=== PATIENT | female | born 1975 | race African-American/Black ===

== ENCOUNTER 2016-06-10 01:45 | Inpatient (IN) | payer OTHER ==
[~2016-06-10] VITALS: Ht 157.5 cm; Wt 73.7 kg
--- NOTE | ~2016-06-10 | H ---
[facility] [place] [address] HISTORY AND PHYSICAL Name: LAINE STALEY HENRIQUE Room #: 433-I ADM IN M.R.#: [id number] Admission: 06/10/16 Attend Phys: Elier Key MD Discharge: Date of : 77 Report #: [id number] THIS REPORT FOR: //name// CC: JOSE physician/PCP Elier Key DATE OF SERVICE: 06/10/2016 CHIEF COMPLAINT: Left mandibular swelling. HISTORY OF PRESENT ILLNESS: The patient is a 40-year-old female with no significant past medical history who presented to the Emergency Room complaining of left-sided facial swelling. Symptoms started 4 days ago when she started having left-sided dental pain. She was seen at a dentist and was told that she had a wisdom tooth infection. She was started on amoxicillin , hydrocodone p.r.n. The patient presented to the Emergency Room because of worsening swelling and pain. She has had some low-grade fever. The patient has had difficulty swallowing because of the swelling. No history of any nausea or vomiting, no chest pain, no dizziness. Workup in the Emergency Room included a CT of the facial bones which showed moderate to large 3.5 cm abscess extending up the left posterior medial angle of the mandible adjacent to the mandibular erosion from the posterior molar. The erosion of the enamel of left lower posterior two molar suggesting severe cavities and dental disease. PAST MEDICAL HISTORY: No hypertension, no diabetes. No history of any surgery. She has had 3 normal vaginal deliveries in the past. No peptic ulcer disease, bleeding disorder. SOCIAL HISTORY: No smoking or alcohol abuse or illicit drug abuse. HOME MEDICATIONS: No chronic medications. She was on amoxicillin, hydrocodone prior to admission. FAMILY HISTORY: Father had diabetes. REVIEW OF SYSTEMS: CONSTITUTIONAL: No recent weight loss, weight gain. Has had some low grade fever. EYES: No change in vision. THROAT: Denies any sore throat. CARDIOVASCULAR: No chest pain, dizziness, palpitations. RESPIRATORY: No cough, expectoration. GASTROINTESTINAL: No nausea or vomiting. GENITOURINARY: No dysuria, hematuria. NEUROLOGIC: No focal numbness and weakness of the extremities. [facility] [address] [place] [address] HISTORY AND PHYSICAL Name: LAINE STALEY HENRIQUE Room #: [address] [place] [address] [place] [facility]#: [id number] Admission: 06/10/16 Attend Phys: Elier Key MD Discharge: Date of : 77 Report #: [id number] PSYCHIATRIC: No anxiety and depression. A 12-point review of system is negative other than the positive and negative dictated in the history of present illness and the review of system. PHYSICAL EXAMINATION: VITAL SIGNS: Blood pressure 90/50, heart rate of 66 per minute, afebrile. GENERAL: The patient is awake and alert, not in acute respiratory distress. EYES: Pupils equal, reactive to light. Extraocular movements intact. THROAT: She has dental caries in the left lower tooth. There is diffuse swelling involving the mandible with tenderness. NECK: There is diffuse swelling over the upper left neck. No bruit noted. No lymphadenopathy. No stridor. CARDIOVASCULAR SYSTEM: S1, S2, negative S3, no murmur. CHEST: Bilateral air entry present. Clear on auscultation. ABDOMEN: Soft, bowel sounds present, no mass, no organomegaly, no tenderness. PERIPHERY: No pedal edema. No calf tenderness. Dorsalis pedis 1+. NEUROLOGICAL: No gross motor or sensory deficit. LABORATORY DATA: Reviewed. White cell count is 13.4, hemoglobin is 12.1, potassium 3.3. BUN and creatinine are within normal limit. negative. CT of the facial bones showed a 3.5 cm, moderate to large abscess extending of the left posterior medial angle of the mandible descended to mandibular erosion from the posterior molar erosion with the enamel of the left lower posterior two molar suggesting severe cavity and dental disease. ASSESSMENT AND PLAN: 1. Abscess, extending of the left posterior medial angle of the mandible adjacent to the mandibular erosion from posterior molar. 2. Dental caries and cavities. 3. Hypokalemia. PLAN: The patient will be continued on IV clindamycin, will also add IV levofloxacin. We will consult oral surgery. The patient will be continued on pain control. She will be placed on a soft diet and IV fluids. We will place her on SCD on the leg for DVT prophylaxis. Potassium will also be replaced. Treatment plan has been explained to the patient in detail. <ELECTRONICALLY SIGNED> By: Elier Key MD 06/10/16 [id number] Elier Key MD /nt
[~2016-06-10 01:45] MED LIST: AMOXICILLIN875 MG PO
[2016-06-10 01:49] VITALS: BP 131/78
[2016-06-10 02:44] LABS: ABSOLUTE NEUTROPHILS 10.6 thou/uL (1.4-8.2); BASOPHILS 0.4 % (0.0-2.0); EOSINOPHILS 0.2 % (0.0-3.0); HEMATOCRIT 36.5 % (37.0-47.0); HEMOGLOBIN 12.1 gm/dL (12.0-15.0); LYMPHOCYTES 10.8 % (24.0-44.0); MCH 28.3 pg (26.0-34.0); MCHC 33.1 g/dL (28.0-37.0); MCV 85.5 fL (80.0-100.0); MONOCYTES 10.1 % (1.0-8.0); PLATELET COUNT 259 thou/uL (150-400); POLYS 78.5 % (36.0-66.0); RBC 4.27 mil/uL (4.20-5.00); RDW 12.8 % (10.5-14.5); WBC 13.4 thou/uL (4.0-11.0)
[2016-06-10 02:46] LABS: MANUAL DIFF NO
[2016-06-10 02:48] LABS: CALCIUM 9.4 mg/dL (8.5-10.1); CREATININE 0.8 mg/dL (0.6-1.0); POTASSIUM 3.3 mmol/L (3.5-5.1)
[2016-06-10 05:09] VITALS: BP 122/69
[2016-06-10 05:35] VITALS: BP 102/50
[2016-06-10] MEDS ORDERED: HYDROCODONE-AP1 EAC6 PO (06:29)
[2016-06-10 08:00] VITALS: BP 109/58; BP 99/50
== END 2016-06-10 13:55 | disposition short-term general hospital (02) | DRG 159 ==
LOC: ER 01:45 → EROBS 04:23 → 4S 04:23
PROVIDERS: Emergency Medicine
DX: K04.7 Periapical abscess without sinus (principal); M27.2 Inflammatory conditions of jaws; K02.9 Dental caries, unspecified; E87.6 Hypokalemia; Z79.899 Other long term (current) drug therapy; Z83.3 Family history of diabetes mellitus
CPT/HCPCS: 10195

== ENCOUNTER 2017-12-07 23:13 | Emergency (ER) | payer OTHER ==
[~2017-12-07] VITALS: Ht 157.5 cm; Wt 74.8 kg
[~2017-12-07 23:13] MED LIST changes: +FLONASE 0.05%50 MCG NASAL; +HYDROCODONE-AP1 EAC6 PO; +VENTOLIN HFA 1818 GM INH; +ZYRTEC10 M2 PO
[2017-12-08] MEDS ORDERED: PREDNISONE 20 M20 MG PO (00:13)
[2017-12-08] MEDS ORDERED: PROAIR HFA8.5 GM INH (00:13)
== END 2017-12-08 00:28 | disposition home or self-care (01) ==
LOC: ER 23:13
DX: J45.901 Unspecified asthma with (acute) exacerbation (principal)